=== PATIENT | female | born 1975 | race Caucasian/White ===

== ENCOUNTER 2019-09-13 17:22 | Emergency (ER) | payer OTHER ==
[~2019-09-13] VITALS: Ht 162.6 cm; Wt 54.0 kg
[2019-09-13 17:24] VITALS: Ht 162.6 cm; Wt 54.0 kg
[2019-09-13 19:09] LABS: BASOPHIL % 0.5 % (0-2); PLATELET COUNT 258 x10^3mcL (130-400); RED CELL DISTRIBUTION WIDTH 12.6 % (11.5-14.5)
[2019-09-13 19:25] LABS: CALCIUM 9.2 mg/dL (8.5-10.1); CHLORIDE SERUM 99 mmol/L (98-107); CREATININE SERUM 0.8 mg/dL (0.6-1.0); GFR1 > 60 mL/min; GLUCOSE SERUM 100 mg/dL (74-106); POTASSIUM SERUM 3.5 mmol/L (3.5-5.1); SODIUM SERUM 137 mmol/L (136-145)
[2019-09-13 19:29] LABS: ALBUMIN 4.4 g/dL (3.4-5.0); ALKALINE PHOSPHATASE 96 U/L (46-116); ALT/SGPT 18 U/L (14-59); AST/SGOT 15 U/L (15-37); BILIRUBIN TOTAL 0.28 mg/dL (0.20-1.00); LIPASE 126 IU/L (73-393)
[2019-09-13 19:30] LABS: TOTAL PROTEIN, SERUM 9.1 g/dL (6.4-8.2)
[2019-09-13 20:55] VITALS: BP 137/80
== END 2019-09-13 20:55 | disposition home or self-care (01) ==
LOC: ED 17:22
PROVIDERS: Emergency Medicine
DX: R07.89 Other chest pain (principal); Z98.890 Other specified postprocedural states
CPT/HCPCS: 36415; Q0092